=== PATIENT | female | born 1965 | race Caucasian/White ===

== ENCOUNTER → 2018-08-25 | Outpatient (REF) | payer OTHER ==
[2018-08-30 00:07] LABS: HERPES ZOSTER, VARICELLA IgG 1308 index (Immune >165); HERPES ZOSTER, VARICELLA IgM <0.91 index (0.00-0.90)
== END ==
LOC: M SFHCCAPE 15:29
PROVIDERS: ATTEND Physician Assistant
DX: R21 Rash and other nonspecific skin eruption (principal)

== ENCOUNTER → 2018-09-28 | Outpatient (REF) | payer OTHER | LOC: M LAB LCGH 10:22 | PROVIDERS: ATTEND Nurse Practitioner Family | DX: L82.1 Other seborrheic keratosis (principal) ==

== ENCOUNTER → 2020-02-10 | Outpatient (CLI) | payer SELFPAY | LOC: M LABSMTC 13:23 | PROVIDERS: ATTEND Pediatrics | DX: Z20.828 Contact with and (suspected) exposure to other viral communicable diseases (principal) ==

== ENCOUNTER → 2022-01-23 | Outpatient (REF) | payer OTHER | LOC: M SFHCDERM 13:04 | PROVIDERS: ATTEND Nurse Practitioner Family | DX: L82.1 Other seborrheic keratosis (principal) ==